=== PATIENT | female | born 1965 | race Caucasian/White ===

== ENCOUNTER 2018-11-12 11:51 | Emergency (ER) | payer OTHER ==
[~2018-11-12] VITALS: Wt 70.0 kg
[~2018-11-12 11:51] MED LIST: cymbalta; depakote; seroquel; trazadone; vicodin
[2018-11-12 11:52] VITALS: BP 140/66; PULSE 98; RESP 20
--- NOTE | 2018-11-12 12:13 | ERD ---
ER Documentation Chief Complaint Chief Complaint left hand laceration from a piece of glass. no bleeding noted. HPI This is a 53-year-old female with a history of insomnia presents to ED with with abrasions to left palmar surface of hand that occurred after patient accidentally scraped her hand on a piece of glass. Denies tingling, numbness, lack sensation, decreased range of motion in all other symptoms. No known drug allergies. Unsure when her last tetanus was ROS All systems reviewed and are negative except as per history of present illness. Medications Home Meds Reported Medications [vicodin] No Conflict Check 08/26/12 [depakote] No Conflict Check 08/26/12 [cymbalta] No Conflict Check 08/26/12 [seroquel] No Conflict Check 08/26/12 [trazadone] No Conflict Check 08/26/12 Allergies Allergies: Coded Allergies: No Known Allergy (Unverified , 08/26/12) PMhx/Soc History of Surgery: Yes (TONSILLECTOMY.GALLBLADDER REMOVAL) Hx Neurological Disorder: No Hx Respiratory Disorders: No Hx Cardiac Disorders: Yes (MILD STROKE,MITRAL VALVE PROLAPSE) Hx Psychiatric Problems: Yes (depression) Hx Miscellaneous Medical Probl: Yes (seizure) Hx Alcohol Use: No Hx Substance Use: No Hx Tobacco Use: No Physical Exam Vitals Vital Signs Date Temp Pulse Resp B/P (MAP) Pulse Ox O2 O2 Flow FiO2 Time Delivery Rate 11/12/18 98.0 98 20 140/66 98 11:52 (90) Physical Exam Physical Exam Vitals signs: Reviewed by me. General: Well developed, well nourished, in no acute distress. Patient is awake and alert. Head: Normocephalic, atraumatic. Eyes: Normal conjunctiva, Pupils PERRLA, EOM intact grossly ENT: Pharynx is clear, Moist mucous membranes, external ears, nose and mouth normal Neck: Supple, no masses, lymphadenopathy or JVD Respiratory: Clear to auscultation bilaterally with no wheezing, rhonchi, rales, no distress Cardiovascular: RRR, no murmurs, rubs, or gallops Neurologic: Alert and oriented, moving all extremities, normal speech, no focal weakness, no cerebellar signs. Normal mentation Skin: There is 2 small abrasions located on patient's palmar surface of left hand with no active bleeding, EXTREMITY: LEFT UPPER EXTREMITY: Radial ulnar median nerve tested for sensory and motor function with no deficit, good cashier clerk strength, full active range of motion with hand and wrist. Psych: Normal mood Results 24 hrs Current Medications Medications Dose Sig/Nabil Start Time Status Last (Trade) Ordered Route PRN Stop Time Admin Dose Reason Admin Diphtheria/ 0.5 ml ONCE ONCE 11/12/18 Tetanus/Acell IM* 12:30 Pertussis 11/12/18 12:31 (Adacel) Procedures/MDM ER COURSE: The patient was stable throughout ED course. I kept the patient and/or family informed of laboratory and diagnostic imaging results throughout the emergency room course. The patient was promptly evaluated and a treatment plan was devised based on H&P and other data. This plan was discussed with the patient who agreed and had no further questions or concerns prior to discharge. MEDICAL DECISION MAKIN-year-old female presents ED with abrasions located on palmar surface of left hand. Wound care was provided in the emergency department and patient was given a tetanus. No evidence of compartment syndrome, neurologic injury, vascular injury, open joint, tendon laceration, fracture, dislocation, or foreign body. Patient's vitals are stable and pt can be managed with close out patient follow up. Advised patient to return to ED or to be seen by primary care for a 48 hour wound check. Return to ED with any worsening symptoms and if patient starts experiencing fever, chills, purulent drainage, warmth, swelling at laceration site this may be indications that wound has become infected and patient may need antibiotics. DISPOSITION PLAN: We discussed follow up with the patient's primary care doctor within 24 to 48 hours. Patient counseled regarding my diagnostic impression and care plan. Prior to discharge all questions answered. Pt agrees with treatment plan and understands strict return precautions. Precautionary instructions provided including instructions to return to the ER if not improving or for any worsening or changing symptoms or concerns. ExitCare instructions provided. Prior to discharge, patients vital signs have been reviewed SPECIALIST FOLLOW UP RECOMMENDED: None Patient has been advised to follow up with primary care in 1-2 days. Disclaimer: Inadvertent spelling and grammatical errors are likely due to EHR/dictation software use and do not reflect on the overall quality of patient care. Also, please note that the electronic time recorded on this note does not necessarily reflect the actual time of the patient encounter. Blood Pressure Assessment: Patient's blood pressure was elevated (>120/80) but appears stable without evidence of hypertension emergency or urgency. The patient was counseled about the risks of hypertension and urged to pursue outpatient monitoring and therapy within a week with their primary care physician. Departure Diagnosis: Primary Impression: Hand abrasion Encounter type: initial encounter Laterality: left Qualified Codes: S60.512A - Abrasion of left hand, initial encounter Condition: Stable Patient Instructions: Abrasion Additional Instructions: Patient advised to return to the ED immediately for new or worsening symptoms. Patient advised to follow up with primary care provider in the next 24-48 hours. Patient verbalized understanding and agrees with treatment plan and course of action. If patient has no primary care they may follow up with one of the community clinics listed on the following page or one of the options listed below [facility] + [address] [address] or [facility] [address] [place] [address] [address] CHANO KUNZ PA-C Nov 12, 2018 12:13
[2018-11-12] MEDS ORDERED: DIPHTH/TET/ACEL PERTUSS (ADULT) 0.5 ML VIAL IM* ONE (12:30)
== END 2018-11-12 12:54 | disposition home or self-care (01) ==
LOC: FTE 11:51
DX: S60.512A Abrasion of left hand, initial encounter (principal); W25.XXXA Contact with sharp glass, initial encounter; Y92.9 Unspecified place or not applicable; Z23 Encounter for immunization
CPT/HCPCS: 90471; 90715; Z7502